=== PATIENT | female | born 1990 | race Caucasian/White ===

== ENCOUNTER 2018-09-12 08:04 | Emergency (ER) | payer OTHER ==
[~2018-09-12] VITALS: Ht 160 cm; Wt 67.2 kg
[2018-09-12 08:13] VITALS: BP 127/53
--- NOTE | 2018-09-12 08:20 | NUR ---
BIB SELF. C/O RIGHT SIDED ANTERIOR CHEST WALL PAIN X YESTERDAY PAIN INCREASES WHEN STRETCHES OUT RIGHT ARM OR PRESSES ON AFFECTED SIDE DENIES RECENT INJURY/TRAUAM, DENIES COLD SYMPTOMS, NO DISCOLORATIONDENIES N/V/D; SKIN IS PINK/WARM/DRY; AAOX4 WITH EVEN AND STEADY GAIT; LUNGS CLEAR BL; HR EVEN AND REGULAR; PT DENIES ANY FEVER, SOB, OR COUGH AT THIS TIME; PATIENT STATES PAIN OF 5/10 AT THIS TIME; VSS; PATIENT POSITIONED FOR COMFORT; HOB ELEVATED; BEDRAILS UP X2; BED DOWN. ER MD MADE AWARE OF PT STATUS.
--- NOTE | 2018-09-12 08:28 | NUR ---
DR TRIVEDI AT BEDSIDE.
[2018-09-12 08:42] VITALS: BP 125/70
--- NOTE | 2018-09-12 08:43 | NUR ---
Patient alert, oriented and verbalized understanding of instructions. Ambulatory with steady gait. All questions addressed prior to discharge. ID band removed. Patient advised to follow up with PMD. Rx of MOTRIN given. Patient educated on indication of medication including possible reaction and side effects. Opportunity to ask questions provided and answered.
== END 2018-09-12 08:40 | disposition home or self-care (01) ==
LOC: MED 08:04
DX: R07.89 Other chest pain (principal)
CPT/HCPCS: 99282

== ENCOUNTER 2018-10-24 08:26 | Emergency (ER) | payer OTHER ==
[~2018-10-24] VITALS: Ht 157.5 cm; Wt 68.3 kg
[2018-10-24 08:30] VITALS: BP 123/70
[2018-10-24 09:04] VITALS: BP 117/67
== END 2018-10-24 09:04 | disposition home or self-care (01) ==
LOC: MED 08:26
DX: R50.9 Fever, unspecified (principal)
CPT/HCPCS: 81002; 81025; 99281

== ENCOUNTER 2019-05-11 06:53 | Emergency (ER) | payer OTHER ==
[~2019-05-11] VITALS: Ht 157.5 cm; Wt 71.7 kg
[2019-05-11 06:55] VITALS: BP 118/69
--- NOTE | 2019-05-11 07:03 | NUR ---
PT AMBULATED TO BED 4
--- NOTE | 2019-05-11 07:06 | NUR ---
28/F BIB SELF C/O N/V/D X 1 DAY. DENIES ANY PAIN. ABD:SOFT. PATIENT POSITIONED FOR COMFORT; HOB ELEVATED; BEDRAILS UP X1; BED DOWN. ER MD MADE AWARE OF PT STATUS.
--- NOTE | 2019-05-11 07:08 | NUR ---
Patient being evaluated by DR SHETTY at bedside.
[2019-05-11 07:17] VITALS: BP 118/69
--- NOTE | 2019-05-11 07:17 | NUR ---
Patient discharged with v/s stable. Written and verbal after care instructions given and explained. Patient alert, oriented and verbalized understanding of instructions. Ambulatory with steady gait. All questions addressed prior to discharge. ID band removed. Patient advised to follow up with PMD. Rx of ZOFRAN & LOMOTIL given. Patient educated on indication of medication including possible reaction and side effects. Opportunity to ask questions provided and answered.
== END 2019-05-11 07:17 | disposition home or self-care (01) ==
LOC: MED 06:53
DX: R19.7 Diarrhea, unspecified (principal); R11.10 Vomiting, unspecified
CPT/HCPCS: 99283

== ENCOUNTER 2019-10-08 11:25 | Emergency (ER) | payer OTHER ==
[~2019-10-08] VITALS: Ht 157.5 cm; Wt 81.6 kg
--- NOTE | 2019-10-08 11:29 | NUR ---
Patient ambulated to bed 9. RN evaluating patient at bedside.
[2019-10-08 11:32] VITALS: BP 116/85
--- NOTE | 2019-10-08 11:34 | NUR ---
28 Y/O F C/C OF PER PT " EVERYTIME I WIPE I NOTICE PINK BLOOD" X 5 MONTHS. PER PT HAS HX OF IRREGULAR PERIODS. PAIN IS INTERMITTENT WITH CURRENTLY NO PAIN PER PT. PT NKA. NO MEDICAL HX. NO RX. NO N/V/D. SIDE RAIL X1.
--- NOTE | 2019-10-08 11:52 | NUR ---
DR JOSEPH AT BEDSIDE
[2019-10-08] MEDS ORDERED: PHENAZOPYRIDINE 100 MG TAB PO ONE (11:55)
[2019-10-08] MEDS ORDERED: LEVOFLOXACIN 500 MG TAB PO ONE (11:55)
[2019-10-08 12:37] VITALS: BP 116/85
--- NOTE | 2019-10-08 12:37 | NUR ---
Patient discharged with v/s stable. Written and verbal after care instructions given and explained. Patient alert, oriented and verbalized understanding of instructions. Ambulatory with steady gait. All questions addressed prior to discharge. ID band removed. Patient advised to follow up with PMD. Rx of CIPRO/PYRIDIUM given. Patient educated on indication of medication including possible reaction and side effects. Opportunity to ask questions provided and answered.
[2019-10-08 13:22] LABS: APPEARANCE,URINE HAZY (CLEAR); BILIRUBIN,URINE NEGATIVE (NEGATIVE); BLOOD, URINE 3+ (NEGATIVE); COLOR,URINE YELLOW (YELLOW); LEUKOCYTE ESTERASE ,URINE 1+ (NEGATIVE); NITRITE, URINE NEGATIVE (NEGATIVE); UGLUCOSE NEGATIVE (NEGATIVE)
[2019-10-08 13:33] LABS: RBC,URINE 11-20 (MOD) /HPF (0-5)
[2019-10-08 13:34] LABS: URINE AMORPHOUS URATE 1+ /HPF (None Seen)
[2019-10-08 13:35] LABS: BARBITURATE, URINE NEG. ng/ml (NEG <=200); BENZODIAZEPINE, URINE NEG. ng/mL (NEG <=200); CANNABINOID, URINE NEG. ng/mL (NEG <=50); COCAINE, URINE NEG. ng/mL (NEG <=300); OPIATE, URINE NEG. ng/mL (NEG <=2000); PHENCYCLIDINE SCREEN,URINE NEG. ng/mL (NEG <=25)
== END 2019-10-08 12:37 | disposition home or self-care (01) ==
LOC: MED 11:25
DX: N30.90 Cystitis, unspecified without hematuria (principal)
CPT/HCPCS: 80305; 81001; 81025; 87086; 87186; 99283

== ENCOUNTER 2020-07-15 07:04 | Emergency (ER) | payer MEDICAID, OTHER ==
[~2020-07-15] VITALS: Ht 157.5 cm; Wt 77.6 kg
[2020-07-15 07:16] VITALS: BP 150/64
--- NOTE | 2020-07-15 07:20 | NUR ---
PATIENT AMBULATED TO ER BED 12
--- NOTE | 2020-07-15 07:22 | NUR ---
29/F C/O URINARY FREQUENCY & INTERMITTENT, MILD LOWER ABDOMINAL CRAMPING PAIN X 5 DAYS. DENIES N/V/D, F/C, DYSURIA, HEMATURIA. APPEARS NAD. MED HX: DENIES
--- NOTE | 2020-07-15 07:26 | NUR ---
DR. FRIEND EVALUATING PT AT BEDSIDE
--- NOTE | 2020-07-15 07:45 | NUR ---
LABORATORY MECHANIC HELPER AT BEDSIDE FOR BLOOD DRAW
--- NOTE | 2020-07-15 07:48 | NUR ---
INFORMED JACKSCREW MAN THAT URINE SAMPLE IS READY TO BE PICKED UP
[2020-07-15 07:56] LABS: APPEARANCE,URINE CLEAR (CLEAR); BILIRUBIN,URINE NEGATIVE (NEGATIVE); BLOOD, URINE NEGATIVE (NEGATIVE); COLOR,URINE YELLOW (YELLOW); LEUKOCYTE ESTERASE ,URINE TRACE (NEGATIVE); NITRITE, URINE NEGATIVE (NEGATIVE); UGLUCOSE NEGATIVE (NEGATIVE)
--- NOTE | 2020-07-15 07:58 | NUR ---
CALLED [facility] TO REMIND THEM OF [facility] ORDER, NO ONE PICKING UP PHONE. NO ONE PICKING UP PHONE FOR CT DEPARTMENT EITHER.
--- NOTE | 2020-07-15 08:02 | NUR ---
[facility] Patient[facility] STATES SHE IS ON HER WAY
[2020-07-15 08:07] LABS: RBC,URINE 0-5 /HPF (0-5); WBC,URINE 0-5 /HPF (0-5)
--- NOTE | 2020-07-15 08:10 | NUR ---
[facility] TECH AT BEDSIDE
--- NOTE | 2020-07-15 08:59 | NUR ---
DR. FRIEND SPEAKING W/ PT AT BEDSIDE
--- NOTE | 2020-07-15 09:08 | NUR ---
Patient discharged with v/s stable. Written and verbal after care instructions given and explained. Patient verbalized understanding. Ambulatory with steady gait. NAD. All questions addressed prior to discharge. Advised to follow up with PMD IN 2-3 DAYS. INSTRUCTED PT TO RETURN TO ER FOR REPEAT SERUM BETA-HCG IF UNABLE TO GET PCP/OB APPOINTMENT IN 2 DAYS.
[2020-07-15 09:09] VITALS: BP 106/70
== END 2020-07-15 09:08 | disposition home or self-care (01) ==
LOC: MED 07:04
DX: O34.81 Maternal care for other abnormalities of pelvic organs, first trimester (principal); N83.291 Other ovarian cyst, right side; R03.0 Elevated blood-pressure reading, without diagnosis of hypertension
CPT/HCPCS: 36415; 76817; 81001; 81025; 84702; 99284; Q0092

== ENCOUNTER 2020-07-19 15:21 | Emergency (ER) | payer MEDICAID ==
[~2020-07-19] VITALS: Ht 157.5 cm; Wt 77.1 kg
[2020-07-19 15:26] VITALS: BP 123/79
[2020-07-19 16:52] VITALS: BP 123/79
== END 2020-07-19 16:54 | disposition home or self-care (01) ==
LOC: MED 15:21
DX: Z32.01 Encounter for pregnancy test, result positive (principal); Z3A.01 Less than 8 weeks gestation of pregnancy
CPT/HCPCS: 36415; 84702; 96361; 96365; 96375; 99283; 99284

== ENCOUNTER 2020-07-25 09:23 | Emergency (ER) | payer MEDICAID ==
[~2020-07-25] VITALS: Ht 157.5 cm; Wt 77.1 kg
[2020-07-25 09:33] VITALS: BP 117/79
[2020-07-25 10:44] LABS: APPEARANCE,URINE CLEAR (CLEAR); BILIRUBIN,URINE NEGATIVE (NEGATIVE); BLOOD, URINE NEGATIVE (NEGATIVE); COLOR,URINE YELLOW (YELLOW); LEUKOCYTE ESTERASE ,URINE NEGATIVE (NEGATIVE); NITRITE, URINE NEGATIVE (NEGATIVE); PH,URINE 5.5 (5.0-9.0); UGLUCOSE NEGATIVE (NEGATIVE)
[2020-07-25 10:50] LABS: BASOPHILS # (AUTO) 0.1 K/uL (0.00-0.22); BASOPHILS % (AUTO) 0.5 % (0.0-2.0); EOSINOPHILS # (AUTO) 0.2 K/uL (0-0.4); EOSINOPHILS % (AUTO) 1.6 % (0.0-4.0); HEMATOCRIT 39.7 % (36-48); HEMOGLOBIN 13.4 g/dL (12.0-16.0); LYMPHOCYTES # (AUTO) 2.6 K/uL (2.5-16.5); MEAN CORPUSCULAR HEMOGLOBIN 30 pg (27-31); MEAN CORPUSCULAR HGB CONC 34 g/dL (33-37); MEAN CORPUSCULAR VOLUME 89.8 fL (80-94); MONOCYTES # (AUTO) 0.6 K/uL (0.8-1.0); MONOCYTES % (AUTO) 5.7 % (1.7-9.3); NEUTROPHILS # (AUTO) 7.4 K/uL (1.8-7.7); NEUTROPHILS % (AUTO) 68.2 % (42.2-75.2); PLATELET COUNT (AUTO) 261 K/uL (140-450); RED BLOOD CELL COUNT(AUTO) 4.42 MIL/uL (4.20-5.40); RED CELL DISTRIBUTION WIDTH 12.9 % (11.6-13.7); WHITE BLOOD COUNT (AUTO) 10.8 K/uL (4.8-10.8)
[2020-07-25 11:13] LABS: ALBUMIN 3.9 g/dL (3.4-5.0); ANION GAP 10.8 (8-16); CARBON DIOXIDE 25.5 mmol/L (21-32); CREATININE 0.5 mg/dL (0.6-1.3); POTASSIUM 3.3 mmol/L (3.5-5.1); TOTAL BILIRUBIN 0.3 mg/dL (0.0-1.0)
[2020-07-25 12:18] VITALS: BP 118/67
== END 2020-07-25 12:19 | disposition home or self-care (01) ==
LOC: MED 09:23
DX: O26.891 Other specified pregnancy related conditions, first trimester (principal); R10.32 Left lower quadrant pain; N83.202 Unspecified ovarian cyst, left side
CPT/HCPCS: 36415; 76801; 80053; 81003; 81025; 84702; 85025; 99284; Q0092

== ENCOUNTER 2020-08-22 09:29 | Emergency (ER) | payer MEDICAID ==
[~2020-08-22] VITALS: Ht 162.6 cm; Wt 74.4 kg
[2020-08-22 09:39] VITALS: BP 71/52
[2020-08-22 09:58] VITALS: BP 125/82
[2020-08-22 11:02] VITALS: BP 125/82
== END 2020-08-22 11:03 | disposition home or self-care (01) ==
LOC: MED 09:29
DX: B34.9 Viral infection, unspecified (principal); R05 Cough; J02.9 Acute pharyngitis, unspecified; Z20.828 Contact with and (suspected) exposure to other viral communicable diseases
CPT/HCPCS: 99283; U0003

== ENCOUNTER 2021-03-10 07:07 | Inpatient (IN) | payer MEDICAID, SELFPAY ==
[~2021-03-10] VITALS: Ht 157.5 cm; Wt 80.7 kg
[2021-03-10] MEDS ORDERED: PRETAB PO (07:50)
[2021-03-10] MEDS ORDERED: METHYLERGONOVINE 0.2 MG/ML AMP IM PRN ×2 (07:55→17:40)
[2021-03-10] MEDS ORDERED: NALBUPHINE 10 MG/ML AMP IVP PRN (07:55)
[2021-03-10] MEDS ORDERED: LACTATED RINGERS 500 ML IV ONE (07:55)
[2021-03-10] MEDS ORDERED: PROMETHAZINE 25 MG/ML VIAL IVP PRN (07:55)
[2021-03-10] MEDS ORDERED: CARBOPROST 250 MCG/ML AMP IM PRN (07:55)
[2021-03-10] MEDS ORDERED: MISOPROSTOL 25 MCG TAB VG SCH (08:00)
[2021-03-10 08:07] VITALS: BP 115/66
[2021-03-10 08:31] LABS: BASOPHILS # (AUTO) 0.2 K/uL (0.00-0.22); BASOPHILS % (AUTO) 1.6 % (0.0-2.0); EOSINOPHILS # (AUTO) 0.1 K/uL (0-0.4); EOSINOPHILS % (AUTO) 0.7 % (0.0-4.0); HEMATOCRIT 36.9 % (36-48); HEMOGLOBIN 12.6 g/dL (12.0-16.0); LYMPHOCYTES % (AUTO) 15.8 % (20.5-51.1); MEAN CORPUSCULAR HEMOGLOBIN 31 pg (27-31); MEAN CORPUSCULAR HGB CONC 34 g/dL (33-37); MEAN CORPUSCULAR VOLUME 92.2 fL (80-94); MONOCYTES # (AUTO) 0.6 K/uL (0.8-1.0); MONOCYTES % (AUTO) 4.9 % (1.7-9.3); NEUTROPHILS # (AUTO) 9.7 K/uL (1.8-7.7); PLATELET COUNT (AUTO) 163 K/uL (140-450); RED BLOOD CELL COUNT(AUTO) 4.01 MIL/uL (4.20-5.40); RED CELL DISTRIBUTION WIDTH 13.2 % (11.6-13.7); WHITE BLOOD COUNT (AUTO) 12.6 K/uL (4.8-10.8)
[2021-03-10 08:32] LABS: BILIRUBIN,URINE NEGATIVE (NEGATIVE); BLOOD, URINE TRACE-I (NEGATIVE); COLOR,URINE YELLOW (YELLOW); LEUKOCYTE ESTERASE ,URINE NEGATIVE (NEGATIVE); PH,URINE 6.5 (5.0-9.0); UGLUCOSE NEGATIVE (NEGATIVE)
[2021-03-10 08:41] LABS: NITRITE, URINE POSITIVE (NEGATIVE); RBC,URINE 0-5 /HPF (0-5); WBC,URINE 0-5 /HPF (0-5)
--- NOTE | 2021-03-10 08:41 | NUR ---
PATIENT HAS BEEN SCREENED AND CATEGORIZED LOW NUTRITION RISK. PATIENT WILL BE SEEN WITHIN 7 DAYS OF ADMISSION. 03/16/[address]
[2021-03-10 08:42] LABS: APPEARANCE,URINE SLIGHTLY HAZY (CLEAR)
[2021-03-10 08:48] LABS: BARBITURATE, URINE NEGATIVE ng/ml (NEG <=200); BENZODIAZEPINE, URINE NEGATIVE ng/mL (NEG <=200); CANNABINOID, URINE NEGATIVE ng/mL (NEG <=50); COCAINE, URINE NEGATIVE ng/mL (NEG <=300); OPIATE, URINE NEGATIVE ng/mL (NEG <=2000); PHENCYCLIDINE SCREEN,URINE NEGATIVE ng/mL (NEG <=25)
[2021-03-10 08:48] LABS: ALBUMIN 2.9 g/dL (3.4-5.0); CARBON DIOXIDE 26.8 mmol/L (21-32); CREATININE 0.4 mg/dL (0.6-1.3); POTASSIUM 3.8 mmol/L (3.5-5.1); TOTAL BILIRUBIN 0.1 mg/dL (0.0-1.0)
[2021-03-10] MEDS ORDERED: AMPICILLIN 2,000 MG in NACL 0.9% MINI-BAG PLUS 100 ML IV SCH (09:45)
[2021-03-10] MEDS ORDERED: AMPICILLIN 2,000 MG VIAL ONE (10:07)
[2021-03-10] MEDS: LACTATED RINGERS 1,000 ML IV SCH ×3 (10:16→17:09)
[2021-03-10] MEDS ORDERED: LIDOCAINE 1% 500 MG/50 ML VIAL ONE (14:18)
[2021-03-10] MEDS ORDERED: ROPIVACAINE 0.2%/NS PREMIX 200 ML EPI ONE (14:18)
[2021-03-10] MEDS ORDERED: fentaNYL citrate 0.05 MG/ML VIAL ONE ×2 (14:18)
[2021-03-10] MEDS ORDERED: OXYTOCIN 20 UNITS/LR PREMIX 1,000 ML IV ONE (15:25)
[2021-03-10] MEDS ORDERED: OXYTOCIN 10 UNITS/ML VIAL IM PRN (17:40)
[2021-03-10] MEDS ORDERED: BENZOCAINE/MENTHOL 20%-0.5% 60 GM CAN TP PRN (17:40)
[2021-03-10] MEDS ORDERED: TEMAZEPAM 15 MG CAP PO PRN (17:40)
[2021-03-10] MEDS ORDERED: METHYLERGONOVINE 0.2 MG TAB PO PRN (17:40)
[2021-03-10] MEDS ORDERED: oxyCODONE/APAP 5/325 MG 1 TAB TAB PO PRN ×2 (17:40)
[2021-03-10] MEDS ORDERED: MEASLES, MUMPS, AND RUBELLA 1 VIAL SQVAC PRN (17:40)
[2021-03-10] MEDS ORDERED: MEASLES, MUMPS, AND RUBELLA 1 VIAL SQVAC ONE (17:50)
[2021-03-10] MEDS ORDERED: DOCUSATE SOD/SENNA 50/8.6 MG 1 TAB PO SCH (21:00)
[2021-03-10] MEDS: IBUPROFEN 800 MG TAB PO PRN (21:59)
[2021-03-11 06:02] LABS: HEMATOCRIT 32.4 % (36-48); HEMOGLOBIN 11.2 g/dL (12.0-16.0)
[2021-03-11] MEDS: IBUPROFEN 800 MG TAB PO PRN ×2 (06:55→16:44)
== END 2021-03-11 19:45 | disposition home or self-care (01) | DRG 560 ==
LOC: MLD 07:07 → OBSVTOIN 07:07 → MFCC 20:05
PROVIDERS: ADMIT Obstetrics & Gynecology; ATTEND Obstetrics & Gynecology
PROC: 10D07Z6 Extraction of Products of Conception, Vacuum, Via Natural or Artificial Opening (ICD-10-PCS; principal; 2021-03-10)
PROC: 10907ZC Drainage of Amniotic Fluid, Therapeutic from Products of Conception, Via Natural or Artificial Opening (ICD-10-PCS; 2021-03-10)
PROC: 3E0P7VZ Introduction of Hormone into Female Reproductive, Via Natural or Artificial Opening (ICD-10-PCS; 2021-03-10)
PROC: 00HU33Z Insertion of Infusion Device into Spinal Canal, Percutaneous Approach (ICD-10-PCS; 2021-03-10)
PROC: 3E0R3BZ Introduction of Anesthetic Agent into Spinal Canal, Percutaneous Approach (ICD-10-PCS; 2021-03-10)
PROC: 3E0234Z Introduction of Serum, Toxoid and Vaccine into Muscle, Percutaneous Approach (ICD-10-PCS; 2021-03-10)
PROC: 3E0134Z Introduction of Serum, Toxoid and Vaccine into Subcutaneous Tissue, Percutaneous Approach (ICD-10-PCS; 2021-03-10)
DX: O41.03X0 Oligohydramnios, third trimester, not applicable or unspecified (principal); O99.12 Other diseases of the blood and blood-forming organs and certain disorders involving the immune mechanism complicating childbirth; E66.3 Overweight; D72.829 Elevated white blood cell count, unspecified; Z20.822 Contact with and (suspected) exposure to COVID-19; O99.214 Obesity complicating childbirth; Z37.0 Single live birth; Z23 Encounter for immunization; Z3A.39 39 weeks gestation of pregnancy
CPT/HCPCS: 36415; 51702; 59200; 76805; 80053; 80305; 81001; 85018; 85025; 86592; 86886; 86900; 86901; 87340; J0290; J2001; J2590; J2795; J3010

== ENCOUNTER 2021-10-14 23:33 | Emergency (ER) | payer MEDICAID, SELFPAY ==
[~2021-10-14] VITALS: Ht 157.5 cm; Wt 81.6 kg
[~2021-10-14 23:33] MED LIST: PRETAB PO
[2021-10-14 23:43] VITALS: BP 138/72
--- NOTE | 2021-10-14 23:46 | NUR ---
to lobby a/w bed ambulatory
--- NOTE | 2021-10-15 | NUR ---
seen and examined by Naveed
[2021-10-15 01:05] LABS: APPEARANCE,URINE CLEAR (CLEAR); BILIRUBIN,URINE NEGATIVE (NEGATIVE); BLOOD, URINE NEGATIVE (NEGATIVE); COLOR,URINE YELLOW (YELLOW); LEUKOCYTE ESTERASE ,URINE 1+ (NEGATIVE); NITRITE, URINE NEGATIVE (NEGATIVE); PH,URINE 7.5 (5.0-9.0); UGLUCOSE NEGATIVE (NEGATIVE)
--- NOTE | 2021-10-15 01:15 | NUR ---
results back and noted by Ermd and for d/c
[2021-10-15 01:30] VITALS: BP 138/72
--- NOTE | 2021-10-15 01:30 | NUR ---
Patient discharged with v/s stable. Written and verbal after care instructions given and explained. Patient verbalized understanding. Ambulatory with steady gait. All questions addressed prior to discharge. Advised to follow up with PMD.
[2021-10-15 01:33] LABS: RBC,URINE 0-5 /HPF (0-5)
== END 2021-10-15 01:30 | disposition home or self-care (01) ==
LOC: MED 23:33
DX: R10.9 Unspecified abdominal pain (principal)
CPT/HCPCS: 81001; 81002; 81025; 87086; 99283

== ENCOUNTER 2021-12-26 23:41 | Emergency (ER) | payer MEDICAID ==
[~2021-12-26] VITALS: Ht 154.9 cm; Wt 84.4 kg
[2021-12-27 00:03] VITALS: BP 129/81
--- NOTE | 2021-12-27 00:06 | NUR ---
TO LOBBY A/W BED AMBULATORY
[2021-12-27 02:02] LABS: APPEARANCE,URINE CLEAR (CLEAR); BILIRUBIN,URINE NEGATIVE (NEGATIVE); BLOOD, URINE NEGATIVE (NEGATIVE); COLOR,URINE YELLOW (YELLOW); LEUKOCYTE ESTERASE ,URINE NEGATIVE (NEGATIVE); NITRITE, URINE NEGATIVE (NEGATIVE); UGLUCOSE NEGATIVE (NEGATIVE)
[2021-12-27 02:22] LABS: RBC,URINE 0-5 /HPF (0-5); WBC,URINE 0-5 /HPF (0-5)
[2021-12-27 02:27] VITALS: BP 129/81
== END 2021-12-27 02:27 | disposition home or self-care (01) ==
LOC: MED 23:41
DX: R10.11 Right upper quadrant pain (principal); Z79.899 Other long term (current) drug therapy
CPT/HCPCS: 81001; 81025; 99284

== ENCOUNTER 2022-03-04 03:13 | Emergency (ER) | payer MEDICAID ==
[~2022-03-04] VITALS: Ht 157.5 cm; Wt 81.6 kg
[2022-03-04 03:14] VITALS: BP 113/60
--- NOTE | 2022-03-04 03:29 | NUR ---
31 YO/F PRESENTS TO ED W C/O MID-EPIGASTRIC PAIN RADIATING TO R SIDE 610 INTERMITENT IMPROVES W CERTAIN POSITIONS X7.5 HOURS, + GAS AND BURPING S/P EATING ICECREAM AND DRINKING MILK. PT DENIES ANY FEVERS/CHILLS, N/V/D OR URINARY PROBLEMS. BREATHING EVEN AND UNLABORED, AWAITING US. PMH: DENIES ALLERGIES: DENIES
--- NOTE | 2022-03-04 04:58 | NUR ---
US AT BEDSIDE
[2022-03-04] MEDS ORDERED: FAMO-92 PO (05:13)
[2022-03-04 05:20] VITALS: BP 113/60
--- NOTE | 2022-03-04 05:20 | NUR ---
Note marcianoone in EDM - 03/04/22 at 0522 by CATHY Patient discharged with v/s stable. Written and verbal after care instructions given and explained. Patient alert, oriented and verbalized understanding of instructions. Ambulatory with steady gait. All questions addressed prior to discharge. ID band removed. Patient advised to follow up with PMD. Rx of PEPCID given. Patient educated on indication of medication including possible reaction and side effects. Opportunity to ask questions provided and answered.
--- NOTE | 2022-03-04 05:21 | NUR ---
Note marcianoone in EDM - 03/04/22 at 0524 by CATHY Patient discharged with v/s stable. Written and verbal after care instructions given and explained. Patient alert, oriented and verbalized understanding of instructions. Ambulatory with steady gait. All questions addressed prior to discharge. ID band removed. Patient advised to follow up with PMD. Rx of PEPCID given. Patient educated on indication of medication including possible reaction and side effects. Opportunity to ask questions provided and answered.
--- NOTE | 2022-03-04 05:21 | NUR ---
Patient discharged with v/s stable. Written and verbal after care instructions given and explained. Patient alert, oriented and verbalized understanding of instructions. Ambulatory with steady gait. All questions addressed prior to discharge. ID band removed. Patient advised to follow up with PMD. Rx of PEPCID given. Patient educated on indication of medication including possible reaction and side effects. Opportunity to ask questions provided and answered. D/C COMPLETED BY CHAN LAU.
== END 2022-03-04 05:18 | disposition home or self-care (01) ==
LOC: MED 03:13
DX: K21.9 Gastro-esophageal reflux disease without esophagitis (principal); R10.13 Epigastric pain
CPT/HCPCS: 76705; 99284; Q0092

== ENCOUNTER 2022-03-08 23:59 | Emergency (ER) | payer MEDICAID ==
[~2022-03-08] VITALS: Ht 157.5 cm; Wt 78.5 kg
[~2022-03-08 23:59] MED LIST changes: +FAMO-92 PO
[2022-03-09 00:06] VITALS: BP 129/75
--- NOTE | 2022-03-09 00:11 | NUR ---
PT TAKEN TO BED 3.
--- NOTE | 2022-03-09 00:26 | NUR ---
31 YO/F PRESENTS TO ED W C/O RUQ PAIN 05/27 SHARP NON-RAD CONSATNT X4.5 HOURS, + AN EPISODE OF NAUSEA WHICH HAS RESOLVED. PT WAS HERE WEDNESDAY W SIMILAR SYMPTOMS TOLD IT WAS GAS OR ACID, PAIN WENT AWAY BUT HAS RETURNED. PT DENIES ANY FEVERS/CHILLS, N/V/D OR URINARY SYMPTOMS. PT SITTIN GIN BED W BREATHING EVEN AND UNLABORED. WILL CONTINUE TO MONITOR. PMH: DENIES ALLERGIES: DENIES
--- NOTE | 2022-03-09 00:34 | NUR ---
PT AMBULATORY TO BATHROOM W STEADY GAIT.
[2022-03-09] MEDS ORDERED: FAMO-90 PO (01:14)
[2022-03-09] MEDS ORDERED: FAMOTIDINE 20 MG TAB PO ONE (01:15)
[2022-03-09] MEDS ORDERED: DICYCLOMINE HCL LIQUID 20 MG, ALUMINUM HYD/MAG/SIMETHICONE 30 ML, LIDOCAINE VISCOUS 2% ... PO ONE ×3 (01:15)
[2022-03-09] MEDS ORDERED: DICYCLOMINE HCL LIQUID 10 MG/5 ML UDC ONE (01:21)
[2022-03-09] MEDS ORDERED: ALUMINUM HYD/MAG/SIMETHICONE 30 ML UDC ONE (01:21)
[2022-03-09 01:44] VITALS: BP 129/75
--- NOTE | 2022-03-09 01:55 | NUR ---
0144Patient discharged with v/s stable. Written and verbal after care instructions given and explained. Patient alert, oriented and verbalized understanding of instructions. Ambulatory with steady gait. All questions addressed prior to discharge. ID band removed. Patient advised to follow up with PMD. Rx of pepcid given. Opportunity to ask questions provided and answered.
== END 2022-03-09 01:44 | disposition home or self-care (01) ==
LOC: MED 23:59
DX: K21.9 Gastro-esophageal reflux disease without esophagitis (principal); Z79.899 Other long term (current) drug therapy
CPT/HCPCS: 81002; 81025; 99283

== ENCOUNTER 2022-04-12 20:37 | Emergency (ER) | payer MEDICAID ==
[~2022-04-12] VITALS: Ht 157.5 cm; Wt 81.6 kg
[~2022-04-12 20:37] MED LIST changes: +FAMO-90 PO
[2022-04-12 20:43] VITALS: BP 118/84
--- NOTE | 2022-04-12 20:48 | NUR ---
PT TAKEN TO BED 1
--- NOTE | 2022-04-12 20:58 | NUR ---
31 Y/O FEMALE BIBS FROM HOME, C/O RIGHT FLANK PAIN SINCE 1600 TODAY. PT STATES WORSE WHEN LAYING FLAT AND REIEF FROM WALKING. PT STATES THE PAIN COMES/GOES, 03/27. DENIES FEVER, COUGH, CP, OR SOB. A/OX4, GCS-15; UNLABORED BREATHING AND SPEAKING IN FULL SENTENCES; AMBULATORY W/O ASSISTANCE. HX: JULIUS MANUEL MEDS: PEPCID
[2022-04-12] MEDS ORDERED: KETOROLAC 60 MG/2 ML VIAL IM ONE (21:10)
[2022-04-12 21:14] LABS: APPEARANCE,URINE CLEAR (CLEAR); BILIRUBIN,URINE NEGATIVE (NEGATIVE); BLOOD, URINE NEGATIVE (NEGATIVE); COLOR,URINE YELLOW (YELLOW); LEUKOCYTE ESTERASE ,URINE TRACE (NEGATIVE); NITRITE, URINE NEGATIVE (NEGATIVE); UGLUCOSE NEGATIVE (NEGATIVE)
[2022-04-12 21:32] LABS: RBC,URINE NONE SEEN /HPF (0-5); WBC,URINE 0-5 /HPF (0-5)
[2022-04-12] MEDS ORDERED: LIDOCAINE 5% 1 EA PATCH TP ONE (21:50)
[2022-04-12] MEDS ORDERED: IBUP-2213 PO (21:58)
[2022-04-12] MEDS ORDERED: LID5T TP (21:58)
[2022-04-12 22:14] VITALS: BP 120/80
--- NOTE | 2022-04-12 22:15 | NUR ---
Patient discharged with v/s stable. Written and verbal after care instructions given and explained. Patient alert, oriented and verbalized understanding of instructions. Ambulatory with steady gait. All questions addressed prior to discharge. ID band removed. Patient advised to follow up with PMD. Rx of LIDODERM 5% PATCH AND IBUPROFEN given. Patient educated on indication of medication including possible reaction and side effects. Opportunity to ask questions provided and answered. VSS, A/OX4, UNLABORED BREATHING, AMBULATORY, AND CALM DEMEANOR.
== END 2022-04-12 22:15 | disposition home or self-care (01) ==
LOC: MED 20:37
DX: M54.9 Dorsalgia, unspecified (principal); K21.9 Gastro-esophageal reflux disease without esophagitis; Z79.899 Other long term (current) drug therapy
CPT/HCPCS: 81001; 81025; 96372; 99283; J1885

== ENCOUNTER 2023-01-26 05:25 | Emergency (ER) | payer MEDICAID ==
[~2023-01-26] VITALS: Ht 157.5 cm; Wt 54.4 kg
[~2023-01-26 05:25] MED LIST changes: +IBUP-2213 PO; +LID5T TP
[2023-01-26 05:39] VITALS: BP 126/74
--- NOTE | 2023-01-26 05:45 | NUR ---
Pt triaged and placed in WR. Appears in no acute distress at this time. VSS.
--- NOTE | 2023-01-26 05:46 | NUR ---
32 F FROM HOME, C/O EPIGASTRIC PAIN X1 DAY (-) N/V, FEVER. TOOK FAMOTIDINE AT HOME W/ NO RELIEF. PMH: HENRY Erazo: GABRIELA
--- NOTE | 2023-01-26 06:14 | NUR ---
MD Larose examining pt.
[2023-01-26 06:31] VITALS: BP 123/70
== END 2023-01-26 06:31 | disposition home or self-care (01) ==
LOC: MED 05:25
DX: K21.9 Gastro-esophageal reflux disease without esophagitis (principal); E11.9 Type 2 diabetes mellitus without complications; Z79.4 Long term (current) use of insulin; Z79.899 Other long term (current) drug therapy
CPT/HCPCS: 99282

== ENCOUNTER 2023-02-18 07:52 | Emergency (ER) | payer MEDICAID ==
[~2023-02-18] VITALS: Ht 157.5 cm; Wt 65.8 kg
[2023-02-18 08:01] VITALS: BP 107/77
--- NOTE | 2023-02-18 08:04 | NUR ---
Patient ambulated to bed 6.
--- NOTE | 2023-02-18 08:04 | NUR ---
PT AMBULATED TO ER BED 6
--- NOTE | 2023-02-18 08:16 | NUR ---
Patient being evaluated by physician at bedside.
--- NOTE | 2023-02-18 08:21 | NUR ---
32 y/o female bib self c/o sore throat, headache, runny nose and eye pain x yesterday. Patient stated her baby was sick with similar symptoms and diagnosed with ear infection. Patient is taking Motrin with relief of symptoms. Denies any fevers, chills or SOB. Medical History: Denies NKDA
[2023-02-18] MEDS ORDERED: ACETAMINOPHEN EXTRA STRENGTH 500 MG TAB PO ONE (08:25)
--- NOTE | 2023-02-18 08:43 | NUR ---
OBTAINED FLU AND CORINNE SWAB, DROPPED OFF TO LAB.
--- NOTE | 2023-02-18 09:14 | NUR ---
Patient discharged with v/s stable. Written and verbal after care instructions given. Patient verbalized understanding. Ambulatory with steady gait. All questions addressed prior to discharge. Advised to follow up with PMD.
--- NOTE | 2023-02-18 09:21 | NUR ---
The patient's care was reviewed and supervised by [facility], RN.
== END 2023-02-18 09:14 | disposition home or self-care (01) ==
LOC: EDBD 07:52 → MED 07:52
DX: B34.9 Viral infection, unspecified (principal); Z20.822 Contact with and (suspected) exposure to COVID-19; E11.9 Type 2 diabetes mellitus without complications; Z79.899 Other long term (current) drug therapy; Z79.1 Long term (current) use of non-steroidal anti-inflammatories (NSAID)
CPT/HCPCS: 99283

== ENCOUNTER 2023-05-24 09:41 | Emergency (ER) | payer MEDICAID ==
[~2023-05-24] VITALS: Ht 157.5 cm; Wt 76.7 kg
[2023-05-24 09:50] VITALS: BP 123/77; PULSE 67; RESP 20; TEMP 98; O2SAT 100
[2023-05-24] MEDS ORDERED: BENZ-300 PO (10:47)
[2023-05-24] MEDS ORDERED: IBUP-2213 PO (10:47)
--- NOTE | 2023-05-24 11:09 | NUR ---
pt swabbed for strepx2. walked to lab
--- NOTE | 2023-05-24 11:10 | NUR ---
Patient discharged with v/s stable. Written and verbal after care instructions FOR SORE THROAT given and explained. Patient alert, oriented and verbalized understanding of instructions. Ambulatory with steady gait. All questions addressed prior to discharge. ID band removed. Patient advised to follow up with PMD. Rx of IBUPROFEN AND BENZOCAINE given. Opportunity to ask questions provided and answered.
== END 2023-05-24 11:10 | disposition home or self-care (01) ==
LOC: MED 09:41
DX: J02.9 Acute pharyngitis, unspecified (principal); E11.9 Type 2 diabetes mellitus without complications; Z79.899 Other long term (current) drug therapy
CPT/HCPCS: 87081; 99283

== ENCOUNTER 2024-01-21 18:10 | Emergency (ER) | payer MEDICAID, OTHER ==
[~2024-01-21] VITALS: Ht 157.5 cm; Wt 74.8 kg
[~2024-01-21 18:10] MED LIST changes: +BENZ-300 PO
[2024-01-21 18:22] VITALS: BP 106/71; PULSE 99; RESP 18; TEMP 98.5; O2SAT 97
[2024-01-21] MEDS ORDERED: LID5T TP (18:33)
[2024-01-21] MEDS ORDERED: NAPR-54 PO (18:33)
[2024-01-21] MEDS: KETOROLAC 30 MG/ML VIAL IM ONE (19:00)
== END 2024-01-21 19:07 | disposition home or self-care (01) ==
LOC: MED 18:10
DX: M25.562 Pain in left knee (principal); M25.561 Pain in right knee; E11.9 Type 2 diabetes mellitus without complications; Z79.4 Long term (current) use of insulin; Z79.899 Other long term (current) drug therapy
CPT/HCPCS: 81025; 96372; 99283; J1885

== ENCOUNTER 2024-03-03 22:00 | Emergency (ER) | payer OTHER ==
[~2024-03-03] VITALS: Ht 157.5 cm; Wt 76.2 kg
[~2024-03-03 22:00] MED LIST changes: +NAPR-337 PO
[2024-03-03 22:03] VITALS: BP 134/78; PULSE 72; RESP 16; TEMP 98.1; O2SAT 99
[2024-03-03] MEDS: ACETAMINOPHEN EXTRA STRENGTH 500 MG TAB PO ONE (22:43)
[2024-03-03] MEDS: METOCLOPRAMIDE 10 MG TAB PO ONE (22:44)
[2024-03-03 22:55] VITALS: BP 134/78; PULSE 72; RESP 16; TEMP 98.1; O2SAT 99
[2024-03-03] MEDS ORDERED: METO-485 PO (23:33)
[2024-03-03] MEDS ORDERED: METH-1681 PO (23:33)
== END 2024-03-03 23:36 | disposition home or self-care (01) ==
LOC: MED 22:00
DX: G44.209 Tension-type headache, unspecified, not intractable (principal); E11.9 Type 2 diabetes mellitus without complications; Z79.4 Long term (current) use of insulin; Z79.899 Other long term (current) drug therapy
CPT/HCPCS: 81025; 99283; J8597

== ENCOUNTER 2024-03-27 16:25 | Emergency (ER) | payer OTHER ==
[~2024-03-27] VITALS: Ht 157.5 cm; Wt 75.8 kg
[~2024-03-27 16:25] MED LIST changes: +METH-1681 PO; +METO-485 PO
[2024-03-27 16:36] VITALS: BP 121/72; PULSE 100; RESP 17; TEMP 97.8; O2SAT 98
[2024-03-27 16:42] VITALS: O2SAT 98
[2024-03-27 17:02] VITALS: BP 120/72; PULSE 87; RESP 14; TEMP 97.8; O2SAT 99
[2024-03-27] MEDS ORDERED: IBUP-2213 PO (18:29)
== END 2024-03-27 18:48 | disposition home or self-care (01) ==
LOC: MED 16:25
DX: R07.89 Other chest pain (principal); R51.9 Headache, unspecified; E11.9 Type 2 diabetes mellitus without complications; Z79.4 Long term (current) use of insulin; Z79.899 Other long term (current) drug therapy
CPT/HCPCS: 93005; 99283

== ENCOUNTER 2024-04-02 02:23 | Inpatient (IN) | payer OTHER ==
[2024-04-02] VITALS (7 sets, daily range): BP systolic 111–135; BP diastolic 5–65; PULSE 63–76; RESP 17–20; TEMP 97.2–97.4; O2SAT 97–99
[~2024-04-02] VITALS: Ht 157.5 cm; Wt 77.1 kg
[2024-04-02] MEDS: PANTOPRAZOLE 40 MG INJ VIAL IVP ONE (03:20)
[2024-04-02] MEDS: NACL 0.9% 1,000 ML IV ONE (03:20)
[2024-04-02 03:22] LABS: BASOPHILS % (AUTO) 0.4 % (0.0-2.0); EOSINOPHILS # (AUTO) 0.2 K/uL (0-0.4); EOSINOPHILS % (AUTO) 1.5 % (0.0-4.0); HEMOGLOBIN 14.2 g/dL (12.0-16.0); LYMPHOCYTES # (AUTO) 3.3 K/uL (2.5-16.5); LYMPHOCYTES % (AUTO) 28.1 % (20.5-51.1); MEAN CORPUSCULAR HEMOGLOBIN 31 pg (27-31); MEAN CORPUSCULAR HGB CONC 35 g/dL (33-37); MEAN CORPUSCULAR VOLUME 88.7 fL (80-94); MONOCYTES # (AUTO) 0.8 K/uL (0.8-1.0); MONOCYTES % (AUTO) 7.3 % (1.7-9.3); NEUTROPHILS # (AUTO) 7.3 K/uL (1.8-7.7); NEUTROPHILS % (AUTO) 62.7 % (42.2-75.2); PLATELET COUNT (AUTO) 262 K/uL (140-450); RED BLOOD CELL COUNT(AUTO) 4.62 MIL/uL (4.20-5.40); RED CELL DISTRIBUTION WIDTH 12.9 % (11.6-13.7); WHITE BLOOD COUNT (AUTO) 11.6 K/uL (4.8-10.8)
[2024-04-02 03:41] LABS: CREATININE 0.5 mg/dL (0.6-1.3)
[2024-04-02 03:48] LABS: ALBUMIN 4.4 g/dL (3.4-5.0); BILIRUBIN,DIRECT 0.1 mg/dL (0.0-0.3); TOTAL BILIRUBIN 0.3 mg/dL (0.0-1.0); TOTAL PROTEIN, SERUM 8.1 g/dL (6.4-8.2)
[2024-04-02 03:50] LABS: POTASSIUM 3.5 mmol/L (3.5-5.1)
[2024-04-02 03:51] LABS: ANION GAP 10.8 (8-16); CALCIUM 8.7 mg/dL (8.5-10.1); CARBON DIOXIDE 29.7 mmol/L (21-32)
[2024-04-02 04:17] LABS: APPEARANCE,URINE CLEAR (CLEAR); BILIRUBIN,URINE NEGATIVE (NEGATIVE); BLOOD, URINE NEGATIVE (NEGATIVE); COLOR,URINE YELLOW (YELLOW); LEUKOCYTE ESTERASE ,URINE NEGATIVE (NEGATIVE); NITRITE, URINE NEGATIVE (NEGATIVE); PROTEIN,URINE NEGATIVE (NEGATIVE); UGLUCOSE NEGATIVE (NEGATIVE); UROBILINOGEN,URINE 0.2 EU/dL (0.2 - 1)
[2024-04-02] MEDS ORDERED: cefTRIAXone 1,000 MG VIAL ONE (08:34)
[2024-04-02] MEDS: metroNIDAZOLE 500 MG/NS PREMIX 100 ML IV ONE (09:14)
[2024-04-02] MEDS ORDERED: MORPHINE SULFATE 2 MG/ML SYR IVP PRN (09:35)
[2024-04-02] MEDS: NACL 0.9% 1,000 ML IV SCH (11:58)
[2024-04-02] MEDS: ONDANSETRON 4 MG/2 ML VIAL IVP PRN (11:59)
[2024-04-02] MEDS: MORPHINE SULFATE 4 MG/ML SYR IVP PRN (12:01)
[2024-04-02] MEDS: BUPIVACAINE-MPF 0.25% 30 ML VIAL INJ ONE (13:46)
[2024-04-02] MEDS ORDERED: ceFAZolin 1,000 MG VIAL ONE (13:55)
[2024-04-02] MEDS: ACETAMINOPHEN 100 ML IV ONE (14:36)
[2024-04-02] MEDS: fentaNYL citrate 0.05 MG/ML VIAL ONE (14:38)
[2024-04-02] MEDS ORDERED: ONDANSETRON 4 MG/2 ML VIAL IVP PRN (15:40)
[2024-04-02] MEDS ORDERED: diphenhydrAMINE 50 MG/ML VIAL IVP PRN (15:40)
[2024-04-02] MEDS: HYDROmorphone 1 MG/ML AMP IVP PRN (16:00)
[2024-04-02] MEDS: ceFAZolin 2,000 MG VIAL ONE (19:42)
[2024-04-02] MEDS: MIDAZOLAM 2 MG/2 ML VIAL ONE (19:43)
[2024-04-02] MEDS: DEXAMETHASONE 4 MG/ML VIAL ONE ×2 (19:44)
[2024-04-02] MEDS: ONDANSETRON 4 MG/2 ML VIAL ONE ×2 (19:44→19:45)
[2024-04-02] MEDS: PROPOFOL 200 MG/20 ML VIAL IV ONE ×2 (19:45)
[2024-04-02] MEDS: ROCURONIUM 50 MG/5 ML VIAL IV ONE (19:46)
[2024-04-02] MEDS: SUCCINYLCHOLINE CHLORIDE 200 MG/10 ML VIAL IVP ONE (19:47)
[2024-04-02] MEDS: NEOSTIGMINE 1:1000 10 MG/10 ML VIAL ONE (19:53)
[2024-04-02] MEDS: KETOROLAC 30 MG/ML VIAL ONE (19:53)
[2024-04-02] MEDS: GLYCOPYRROLATE 0.2 MG/ML VIAL ONE ×3 (19:53→19:54)
[2024-04-02] MEDS: HYDROmorphone PFS 2 MG/ML SYR ONE (19:54)
[2024-04-02] MEDS: HYDROcodone/APAP 5/325 MG 1 TAB TAB PO PRN (22:58)
[2024-04-03 04:00] VITALS: BP 119/78; PULSE 62; RESP 18; TEMP 96.9; O2SAT 100
[2024-04-03 07:18] LABS: BASOPHILS % (AUTO) 0.2 % (0.0-2.0); EOSINOPHILS % (AUTO) 0.1 % (0.0-4.0); HEMATOCRIT 38.6 % (36-48); HEMOGLOBIN 13.2 g/dL (12.0-16.0); LYMPHOCYTES # (AUTO) 1.7 K/uL (2.5-16.5); LYMPHOCYTES % (AUTO) 11.3 % (20.5-51.1); MEAN CORPUSCULAR HEMOGLOBIN 30 pg (27-31); MEAN CORPUSCULAR HGB CONC 34 g/dL (33-37); MEAN CORPUSCULAR VOLUME 88.9 fL (80-94); MONOCYTES # (AUTO) 0.9 K/uL (0.8-1.0); MONOCYTES % (AUTO) 5.9 % (1.7-9.3); NEUTROPHILS # (AUTO) 12.4 K/uL (1.8-7.7); NEUTROPHILS % (AUTO) 82.5 % (42.2-75.2); PLATELET COUNT (AUTO) 267 K/uL (140-450); RED BLOOD CELL COUNT(AUTO) 4.34 MIL/uL (4.20-5.40); RED CELL DISTRIBUTION WIDTH 12.7 % (11.6-13.7)
[2024-04-03 07:34] LABS: ALBUMIN 3.6 g/dL (3.4-5.0); ANION GAP 11.6 (8-16); CALCIUM 8.3 mg/dL (8.5-10.1); CARBON DIOXIDE 28.4 mmol/L (21-32); CREATININE 0.6 mg/dL (0.6-1.3); TOTAL BILIRUBIN 0.5 mg/dL (0.0-1.0); TOTAL PROTEIN, SERUM 7.4 g/dL (6.4-8.2)
[2024-04-03 08:00] VITALS: BP 123/61; PULSE 58; PULSE 63; RESP 17; RESP 18; TEMP 96.5; O2SAT 97; O2SAT 99
[2024-04-03] MEDS ORDERED: TOR10 PO (14:48)
[2024-04-03 20:00] VITALS: BP 101/61; PULSE 74; RESP 16; RESP 18; TEMP 97.4; O2SAT 97
[2024-04-04] MEDS: PANTOPRAZOLE 40 MG TABEC PO ONE (00:02)
[2024-04-04 04:00] VITALS: BP 124/78; PULSE 78; RESP 18; TEMP 97.2; O2SAT 99
[2024-04-04 08:00] VITALS: BP 110/74; PULSE 63; PULSE 90; RESP 18; TEMP 96.7; O2SAT 97; O2SAT 99
[2024-04-04] MEDS: PANTOPRAZOLE 40 MG TABEC PO SCH (09:40)
[2024-04-04] MEDS ORDERED: PANT40EC PO (14:09)
[2024-04-04] MEDS ORDERED: DOCU-299 PO (14:10)
== END 2024-04-04 16:00 | disposition home or self-care (01) | DRG 234 ==
LOC: MED 02:23 → MTU 09:37
PROVIDERS: ADMIT Internal Medicine; ATTEND Internal Medicine
PROC: 0DTJ4ZZ Resection of Appendix, Percutaneous Endoscopic Approach (ICD-10-PCS; principal; 2024-04-02 14:00)
DX: K35.80 Unspecified acute appendicitis (principal); E11.9 Type 2 diabetes mellitus without complications; Z79.899 Other long term (current) drug therapy
CPT/HCPCS: 36415; 71045; 73030; 80048; 80053; 80076; 81003; 82150; 83690; 85025; 87040; 96365; 96367; 96375; 99285; C9113; J0330; J0690; J0696; J1100; J1170; J1885; J2250; J2270; J2405; J2704; J2710; J3010; J3490; J7030; J7060; J7120

== ENCOUNTER 2024-04-08 16:48 | Emergency (ER) | payer OTHER ==
[~2024-04-08] VITALS: Ht 157.5 cm; Wt 72.1 kg
[~2024-04-08 16:48] MED LIST changes: -BENZ-300 PO; +DOCU-299 PO; -FAMO-90 PO; -FAMO-92 PO; -IBUP-2213 PO; -LID5T TP; -METH-1681 PO; -METO-485 PO; -NAPR-337 PO; +PANT40EC PO; -PRETAB PO; +TOR10 PO
[2024-04-08 17:10] VITALS: BP 114/76; PULSE 97; RESP 16; TEMP 98.2; O2SAT 96
[2024-04-08 18:16] VITALS: BP 126/68; PULSE 84; RESP 18; TEMP 97.1; O2SAT 97
== END 2024-04-08 18:22 | disposition home or self-care (01) ==
LOC: MED 16:48
DX: K60.2 Anal fissure, unspecified (principal); Z79.899 Other long term (current) drug therapy; Z90.49 Acquired absence of other specified parts of digestive tract
CPT/HCPCS: 99281

== ENCOUNTER 2024-06-18 19:07 | Emergency (ER) | payer OTHER ==
[~2024-06-18] VITALS: Ht 157.5 cm; Wt 72.1 kg
[2024-06-18 19:20] VITALS: BP 129/69; PULSE 76; RESP 16; TEMP 97.9; O2SAT 97
--- NOTE | 2024-06-18 19:25 | NUR ---
TO LOBBY FOLLOWING TRIAGE AFTER OBTAINING UA
--- NOTE | 2024-06-18 19:54 | NUR ---
PT AMBULATES TO BED 11
[2024-06-18] MEDS: KETOROLAC 30 MG/ML VIAL IM ONE (19:58)
[2024-06-18] MEDS: ONDANSETRON 4 MG ODT PO ONE (19:58)
[2024-06-18 20:20] LABS: BASOPHILS % (AUTO) 0.4 % (0.0-2.0); EOSINOPHILS # (AUTO) 0.2 K/uL (0-0.4); EOSINOPHILS % (AUTO) 1.5 % (0.0-4.0); HEMATOCRIT 38.4 % (36-48); HEMOGLOBIN 12.9 g/dL (12.0-16.0); LYMPHOCYTES # (AUTO) 3.4 K/uL (2.5-16.5); LYMPHOCYTES % (AUTO) 31.4 % (20.5-51.1); MEAN CORPUSCULAR HEMOGLOBIN 30 pg (27-31); MEAN CORPUSCULAR HGB CONC 34 g/dL (33-37); MEAN CORPUSCULAR VOLUME 90.4 fL (80-94); MONOCYTES # (AUTO) 0.7 K/uL (0.8-1.0); MONOCYTES % (AUTO) 6.4 % (1.7-9.3); NEUTROPHILS # (AUTO) 6.4 K/uL (1.8-7.7); NEUTROPHILS % (AUTO) 60.3 % (42.2-75.2); PLATELET COUNT (AUTO) 258 K/uL (140-450); RED BLOOD CELL COUNT(AUTO) 4.24 MIL/uL (4.20-5.40); RED CELL DISTRIBUTION WIDTH 12.7 % (11.6-13.7); WHITE BLOOD COUNT (AUTO) 10.7 K/uL (4.8-10.8)
[2024-06-18 20:20] LABS: BILIRUBIN,URINE NEGATIVE (NEGATIVE); BLOOD, URINE NEGATIVE (NEGATIVE); COLOR,URINE YELLOW (YELLOW); LEUKOCYTE ESTERASE ,URINE NEGATIVE (NEGATIVE); NITRITE, URINE NEGATIVE (NEGATIVE); PROTEIN,URINE NEGATIVE (NEGATIVE); UGLUCOSE NEGATIVE (NEGATIVE); UROBILINOGEN,URINE 0.2 EU/dL (0.2 - 1)
[2024-06-18 20:22] LABS: APPEARANCE,URINE CLEAR (CLEAR)
--- NOTE | 2024-06-18 20:33 | NUR ---
33YR OLD FEMALE BIB SELF C/O ABD PAIN +NAUSEA XTODAY. PT STATES PAIN LEVEL 8/10 RADIATING TO MID GASTRIC AND R FLANK AREA. DENIES V/D. PT IS A/OX4 DENIES PAIN WITH URINATION NKDA NO MED HX
[2024-06-18 20:34] LABS: ANION GAP 10.3 (8-16); CALCIUM 8.9 mg/dL (8.5-10.1); CARBON DIOXIDE 29.4 mmol/L (21-32); CREATININE 0.6 mg/dL (0.6-1.3); POTASSIUM 3.7 mmol/L (3.5-5.1)
[2024-06-18 20:40] LABS: ALBUMIN 3.6 g/dL (3.4-5.0); BILIRUBIN,DIRECT 0.1 mg/dL (0.0-0.3); TOTAL BILIRUBIN 0.3 mg/dL (0.0-1.0); TOTAL PROTEIN, SERUM 7.3 g/dL (6.4-8.2)
[2024-06-18] MEDS ORDERED: IBUP-2218 PO (20:56)
[2024-06-18] MEDS ORDERED: ONDA-188 SL (20:56)
[2024-06-18] MEDS ORDERED: ACET500T99 PO (20:56)
--- NOTE | 2024-06-18 21:00 | NUR ---
The patient's care was reviewed and supervised by JACK DAWSON RN.
[2024-06-18 21:06] VITALS: BP 122/67; PULSE 72; RESP 16; TEMP 97.9; O2SAT 97
--- NOTE | 2024-06-18 21:06 | NUR ---
Patient discharged with v/s stable. Written and verbal after care instructions given and explained. Patient alert, oriented and verbalized understanding of instructions. Ambulatory with to car. All questions addressed prior to discharge. ID band removed. Patient advised to follow up with PMD. Rx of ZOFRAN, TYLENOL given. Patient educated on indication of medication including possible reaction and side effects. Opportunity to ask questions provided and answered.
== END 2024-06-18 21:06 | disposition home or self-care (01) ==
LOC: MED 19:07
DX: K80.20 Calculus of gallbladder without cholecystitis without obstruction (principal); Z90.49 Acquired absence of other specified parts of digestive tract; Z79.1 Long term (current) use of non-steroidal anti-inflammatories (NSAID); Z79.899 Other long term (current) drug therapy
CPT/HCPCS: 36415; 76705; 80048; 80076; 81001; 81003; 81025; 83690; 85025; 96372; 99285; J1885; Q0092; Q0162